=== PATIENT | male | born 1955 | race Caucasian/White ===

== ENCOUNTER 2021-02-23 13:00 | Outpatient (RCR) | payer MEDICARE, SELFPAY ==
--- NOTE | 2021-02-23 13:48 | PTOPEVAL ---
Thank you for referring Shadi Smith to [facility].? The patient is scheduled to be seen for therapy? __3__x/week for 12 visits. Please review, sign, date and return this plan of care MARIO. I agree with and certify that the following plan of care is medically necessary. Referring Physician Date Admitting Provider: Attending Provider: Chris Birmingham Referring Provider: *PT Outpatient Evaluation Start: 02/23/21 13:11 Freq: Status: Active Protocol: Document 02/23/21 13:11 RENITA (Rec: 02/23/21 13:47 RENITA [email or web address]) Therapy Assessment Status Assessment Status Assessment Status Evaluation Evaluation Information Problem Diagnosis low back pain Onset 12/07/20 Subjective Information Pt. reports that he injured Query Text:As Reported By Patient/ his back in [facility] after Family attempting to lift a concrete block. He states that his pain is across his low back. He notes pain in the buttock and both legs on occassion. He reports pain is increased with standing for long periods, but pain can be eased with walking. He reports that pain will wake him at night. He reports that he does sit alot. He reports that his goal is to decrease his back pain. Diagnostic Tests X-Rays For This Problem Yes MRI For This Problem Yes Prior Level of Function Activity Level (Last 3 Months) Occupation retired Hand Dominance Right Activity of Daily Living Ability Independent Indoor/Home Mobility Independent Community Mobility Independent Stairs Ability Independent Functional Cognition (Planning, Shopping Independent , Taking Medications) Cooking Yes Cleaning Yes Laundry Yes Shopping Yes Driving Yes Pain Assessment Pain Scale Pain Scale Used Numeric (1 - 10) Self Report Pain Assessment Lower Back Reported Pain Level 8 Pain Description Aching,Dull Pain Frequency Chronic,Continuous Pain Aggravating Factors Weight Bearing/Standing Pain Score Pain Score 8: Self Report Interventions Used Interventions Used By Clinicians Electrical Stimulation, Exercise,Heat Cervical and Lumbar ROM Lumbar ROM Lumbar F
== END 2021-03-19 14:18 | disposition home or self-care (01) ==
LOC: CHSPT 13:00
PROVIDERS: PCP Family Medicine
DX: M54.5 Low back pain (principal)
CPT/HCPCS: 97014; 97110; 97140; 97161; 97530; G0283